=== PATIENT | female | born 1955 | race Caucasian/White ===

== ENCOUNTER → 2016-02-10 | Outpatient (CLI) | payer OTHER | LOC: MMPC 10:00 | PROVIDERS: ATTEND Physician Assistant | DX: M47.812 Spondylosis without myelopathy or radiculopathy, cervical region (principal); R51 Headache | CPT/HCPCS: 99213; G0463 ==

== ENCOUNTER → 2016-02-17 | Outpatient (CLI) | payer OTHER ==
[2016-02-19 13:50] LABS: ALDOSTERONE 5.8 ng/dL (<=21)
[2016-02-19 17:09] LABS: TESTOSTERONE TOTAL 7.9 ng/dL (8-60)
== END ==
LOC: LAB 07:28
PROVIDERS: ATTEND Student in an Organized Health Care Education/Training Program
DX: C74.92 Malignant neoplasm of unspecified part of left adrenal gland (principal); E27.49 Other adrenocortical insufficiency
CPT/HCPCS: 36415; 82088; 82157; 82627; 82670; 83498; 84244; 84403

== ENCOUNTER → 2016-02-23 | Outpatient (CLI) | payer OTHER ==
[2016-02-23 08:15] LABS: BASOPHILS # (AUTO) 0.04 10*3/UL; BASOPHILS % (AUTO) 0.6 % (0-1); EOSINOPHILS % (AUTO) 2.4 % (0-8); HEMATOCRIT 36.7 % (37.0-47.0); HEMOGLOBIN 12.9 g/dL (12.0-16.0); IMM GRAN % (AUTO) 0 % (0-5); IMM GRAN# (AUTO) 0 10*3/UL; LYMPHOCYTES # (AUTO) 2.08 10*3/uL; MEAN CORPUSCULAR HEMOGLOBIN 29.5 PG (27-31); MEAN CORPUSCULAR HGB CONC 35.1 g/dL (33-37); MEAN PLATELET VOLUME 8.7 FL (7.4-12.2); MONOCYTES # (AUTO) 0.72 10*3/UL (0.3-0.8); MONOCYTES % (AUTO) 10.7 % (5-15); NEUTROPHILS # (AUTO) 3.72 10*3/UL; NEUTROPHILS % (AUTO) 55.3 % (50-80); RDW COEFFICIENT OF VARIATION 13.6 % (11.5-14.5); RED BLOOD COUNT 4.37 10^6/uL (4.20-5.40); WHITE BLOOD COUNT 6.72 10^3/uL (4.8-10.8)
--- NOTE | 2016-02-23 08:23 | EKG ---
[address] [address] Measurements Intervals [place] Rate: 77 P: 42 OK: 155 QRS: 47 QRSD: 79 T: 40 QT: 365 QTc: 397 Interpretive Statements SINUS RHYTHM No previous ECG available for comparison Electronically Signed On 02-23-16 15:58:10 MST by Nj Crump [email or web address]
[2016-02-23 08:28] LABS: PLATELET MORPHOLOGY COMMENT NORMAL MORPHOLOGY (NORM)
[2016-02-23 08:45] LABS: CALCIUM 9.8 mg/dL (8.7-10.7); POTASSIUM 4.1 meq/L (3.8-5.2)
[2016-02-23 08:52] LABS: PROTHROMBIN TIME 10.3 secs (9.7-11.4)
== END ==
LOC: LAB 07:51
PROVIDERS: ATTEND Urology
DX: D49.7 Neoplasm of unspecified behavior of endocrine glands and other parts of nervous system (principal)
CPT/HCPCS: 36415; 80048; 85025; 85610; 85730; 93005; 93010

== ENCOUNTER 2016-05-06 14:22 | Emergency (ER) | payer OTHER ==
[2016-05-06] MEDS ORDERED: Sodium Chloride 0.9% 1,000 ML PRIMARY IV ONE (14:32)
[2016-05-06] MEDS ORDERED: KETOROLAC 30 MG/1 ML VIAL IVP ONE (14:32)
[2016-05-06] MEDS ORDERED: ONDANSETRON 4 MG/2 ML VIAL IVP ONE (14:34)
[2016-05-06 14:35] VITALS: RESP 16; TEMP 96.8
--- NOTE | 2016-05-06 14:39 | PDOC ---
Upper Respiratory HPI - General Chief Complaint: Cough / URI Stated Complaint: URI/DYSPNEA/CP Date Seen by Provider: 05/06/16 Time Seen by Provider: 14:34 Source: POSITIVE: Patient Exam Limitations: POSITIVE: No limitations Nurse's Notes Reviewed & Considered: Yes - History of Present Illness Initial Comments: Patient comes in today with a chief complaint of shortness of breath. Patient with cough, subjective fever, chills, sweats, shortness of breath, yellowish tinged sputum, and myalgias. Presently denies any rashes, she does have a headache, she has nausea but no vomiting, no diarrhea. She denies any dysuria or hematuria. Symptoms have been ongoing for approximately 7 days and getting worse. Timing: REPORTS: Getting Worse Duration: <1 week Severity: Moderate Quality: REPORTS: Other (Body aches, stuffy nose, cough, productive phlegm) Context: REPORTS: Recent Chemotherapy Modifying Factors: improves with: Rest, Coughing Associated Symptoms: REPORTS: Fever, Chills, Sweating, Runny Nose, Sinus Pain, Sore Throat, Hoarseness, Chest Pain, Cough, Productive Cough, Shortness of Breath, Hurts to Breathe, Headache Similar Symptoms Previously: No Recently seen/treated/hospitalized: No Any Prior Injuries Related to Current Complaint?: No - Patient Home Medications Home Medications: Home Medications Lisinopril 1 tab PO BID #30 tab 03/10/16 Hydrocortisone 5 mg PO TID 05/06/16 Prochlorperazine Maleate 10 mg PO PRN PRN 05/06/16 - Patient Allergies Allergies/Adverse Reactions: Allergies Allergy/AdvReac Type Severity Reaction Status Date / Time Penicillins Allergy Severe Anaphylaxis Verified 05/06/16 14:24 codeine Allergy Intermediate ITCHING Verified 05/06/16 14:24 hydrocodone Allergy Intermediate ITCHING Verified 05/06/16 14:24 Past Medical History - heen HEENT History: Denies History Cardiovascular History: Denies History Respiratory History: Denies History Gastrointestinal History: Denies History Genitourinary History: Denies History Endocrine History: Other (please comment) Additional Endocrine History: ADRENAL TUMOR/CYST? Musculoskeletal History: Back Pain, Other (please comment) Prosthesis or Implant: Yes (RT WRIST) Additional Musculoskeletal History: DJD Neurological History: Denies History Blood Disorders: Denies History Psychiatric History: Depression, Bi Polar Disorder, Anxiety Disorders History of Sexually Transmitted Diseases: No Cancer History: Denies History History of MDRO: No History of Other Communicable Diseases: No Alcohol Use: None Substance Use Type: None Previous Surgical History: Yes Type / Date of Surgery: GB AND HYSTERECTOMY. RT FOOT LIGAMENT REPAIR. RT WRIST PLATE. FATTY TUMOR OFF SHOULDER Anesthesia Reactions: Yes (AGITATION) Significant Family History: No pertinent family hx ROS - Limitations ROS Limitations: No Limitations Constitution: REPORTS: Chills, Fever, Diaphoresis, Weakness Cardiovascular: REPORTS: Chest Pain Respiratory: REPORTS: Cough Productive, Hurts To Breathe, Shortness Of Breath Neurological: REPORTS: Headache Gastrointestinal: REPORTS: Abdominal Pain, Nausea Endocrine: REPORTS: Denies Symptoms Musculoskeletal: REPORTS: Muscle Aches Genitourinary: REPORTS: Denies Symptoms Eyes: REPORTS: Denies Symptoms ENT: REPORTS: Congestion, Nasal Drainage, Sore Throat Skin: REPORTS: Denies Skin Symptoms Lympathic: REPORTS: Denies Lympathic Symptoms Immunologic: POSITIVE: Denies Symptoms Psychiatric: POSITIVE: Denies Psych Symptoms Upper Respiratory/Fever Exam - General Appearance General Appearance: REPORTS: Alert, Cooperative, No Evidence of Trauma, Mild Distress - HEENT HEENT: POSITIVE: Head Inspection Nml, Eyes Inspection Nml, Ears Inspection Nml, Nose Inspection Nml, PERRL, EOMI, Clear Nasal Drainage - Neck Neck: REPORTS: Normal Inspection, Supple - Respiratory Respiratory: REPORTS: No Respiratory Distress, Breath Sounds Normal, Speaks Full Sentences - Abdomen Abdomen: Soft: (All Quadrants), Normal Bowel Sounds: (All Quadrants), Tenderness Noted: (RUQ), (LUQ) - Cardiovascular Cardiovascular: REPORTS: Regular Rate and Rhythm, Heart Sounds Normal, Equal Pulses - Skin Skin: REPORTS: Intact, Normal For Race, Warm, Dry, No Rash - Extremities Extremity: Non-Tender: (All Extremities), Normal ROM: (All Extremities), Normal Inspection: (All Extremities) - Neurological / Psychological Neurological: POSITIVE: Affect Apporpriate, Oriented X3 Upper Resp/Fever Progress - Results Reviewed by me Xrays/CTs/US Reviewed by me: Yes Discussed with Radiologist: No Lab Results Reviewed: Yes Lab Results:: Laboratory Results 05/06/16 05/06/16 05/06/16 Range/Units 14:32 14:46 14:47 WBC 4.64 L (4.8-10.8) 10^3/uL RBC 4.71 (4.20-5.40) 10^6/uL Hgb 13.9 (12.0-16.0) g/dL Hct 39.5 (37.0-47.0) % MCV 83.9 (81-99) FL MCH 29.5 (27-31) PG MCHC 35.2 (33-37) g/dL RDW Std Deviation 43.8 (39-50) fL RDW Coeff of Maria Elena 14.5 (11.5-14.5) % Plt Count 148 (140-350) 10*3/uL MPV 9.1 (7.4-12.2) FL Immature Gran % (Auto) 0.2 (0-5) % Neut % (Auto) 62.8 (50-80) % Lymph % (Auto) 11.9 (10-50) % [place] % (Auto) 18.8 H (5-15) % Eos % (Auto) 5.0 (0-8) % Baso % (Auto) 1.3 H (0-1) % Immature Gran # (Auto) 0.01 10*3/UL Neut # (Auto) 2.92 10*3/UL Lymph # (Auto) 0.55 10*3/uL [place] # (Auto) 0.87 H (0.3-0.8) 10*3/UL Eos # (Auto) 0.23 10*3/UL Baso # (Auto) 0.06 10*3/UL WBC Morphology Comment Normal morphology (NORM) Plt Morphology Comment Normal morphology (NORM) RBC Morph Comment Normal morphology (NORM) VBG pH 7.50 H (7.32-7.42) VBG pCO2 31 L (45-55) mmHg VBG HCO3 24 (22-26) mmol/L VBG Base Excess 1 (-2-2) MMOL/L Sodium 141 (135-145) meq/L Potassium 4.0 (3.8-5.2) meq/L Chloride 105 (98-112) meq/L Carbon Dioxide 25 (23-33) meq/L Anion Gap 11 (5-20) BUN 11 (7-22) mg/dL Creatinine 0.8 (0.50-1.20) mg/dL Estimated GFR > 60 (>60 ml/min/1.73m(2)) BUN/Creatinine Ratio 13.75 (6-20) Glucose 86 (78-110) mg/dL Calculated Osmolality 289.0 (267-292) mOsm/kg Lactic Acid < 0.5 L (0.70-2.10) MMOL/L Calcium 9.4 (8.7-10.7) mg/dL Magnesium 2.2 (1.6-2.4) mg/dL Total Bilirubin 0.5 (0.3-1.2) mg/dL AST 19 (8-39) IU/L ALT 24 (9-52) IU/L Alkaline Phosphatase 132 H (38-126) IU/L C-Reactive Protein 4.1 H (0.0-0.9) mg/dL NT-Pro-B Natriuret Pep 45.0 (0-125) PG/ML Total Protein 6.9 (6.1-8.0) g/dL Albumin 4.1 (3.5-4.8) g/dL Globulin 2.8 (2.50-4.10) g/dL Albumin/Globulin Ratio 1.40 (1.3-2.0) mg/g EKG Interpretation:: POSITIVE: Normal Sinus Rhythm, Normal Rate - Patient's Progress Pain Medication Addressed: POSITIVE: Yes Re-Examine Time: 15:23 Status: POSITIVE: Improved Air Movement: Good Antibiotics Given: No (Azithromycin prescribed.) Nebulizer Treatment Given:: Yes Quality Measure Initiative: CAP: POSITIVE: SaO2, CXR or CT - Consult Counseled: POSITIVE: Patient, Family, RE: Lab Results, RE: Radiology Results, RE : DX, RE: Need for F/U RX Given: Yes (Azithromycin and medrol dose pack.) Patient Care Time - Estimated PCT Patient Care Time (In Minutes): 30 Vital Signs - Recent Vital Signs Vital Signs: Vital Signs (Last 8 hours) Temp Pulse Resp BP Pulse Ox 05/06/16 14:28 96.8 F 94 16 124/89 98 - VS Reviewed Vital Signs Reviewed: Yes Discharge Clinical Impression: Chronic obstructive pulmonary disease with acute exacerbation Discharge Disposition: Discharged to Home Condition: Stable Patient Instructions Given at Discharge: COPD (Chronic Obstructive Pulmonary Disease) (ED)
[2016-05-06 14:41] LABS: BASOPHILS # (AUTO) 0.06 10*3/UL; BASOPHILS % (AUTO) 1.3 % (0-1); EOSINOPHILS # (AUTO) 0.23 10*3/UL; HEMATOCRIT 39.5 % (37.0-47.0); HEMOGLOBIN 13.9 g/dL (12.0-16.0); LYMPHOCYTES # (AUTO) 0.55 10*3/uL; MEAN CORPUSCULAR HEMOGLOBIN 29.5 PG (27-31); MEAN CORPUSCULAR HGB CONC 35.2 g/dL (33-37); MEAN CORPUSCULAR VOLUME 83.9 FL (81-99); MEAN PLATELET VOLUME 9.1 FL (7.4-12.2); MONOCYTES # (AUTO) 0.87 10*3/UL (0.3-0.8); MONOCYTES % (AUTO) 18.8 % (5-15); NEUTROPHILS # (AUTO) 2.92 10*3/UL; NEUTROPHILS % (AUTO) 62.8 % (50-80); RED BLOOD COUNT 4.71 10^6/uL (4.20-5.40)
[2016-05-06 14:46] LABS: PLATELET MORPHOLOGY COMMENT NORMAL MORPHOLOGY (NORM); RBC MORPHOLOGY COMMENT NORMAL MORPHOLOGY (NORM); WBC MORPHOLOGY COMMENT NORMAL MORPHOLOGY (NORM)
[2016-05-06] MEDS ORDERED: IPRATROPIUM/ALBUTEROL SULFATE 3 ML NEB NEB ONE ×3 (14:51→15:00)
[2016-05-06 15:04] LABS: VENOUS PH 7.5 (7.32-7.42)
--- NOTE | 2016-05-06 15:04 | EKG ---
[address] [address] Measurements Intervals [place] Rate: 80 P: 61 PA: 151 QRS: 68 QRSD: 70 T: 61 QT: 356 QTc: 393 Interpretive Statements SINUS RHYTHM NONSPECIFIC T WAVE CHANGES Compared to ECG 02/23/2016 08:18:38 No significant changes Electronically Signed On 05-07-16 16:04:08 MDT by Nj Crump [email or web address]
[2016-05-06 15:05] LABS: BLOOD UREA NITROGEN 11 mg/dL (7-22); BUN/CREATININE RATIO 13.75 (6-20); C-REACTIVE PROTEIN 4.1 mg/dL (0.0-0.9); CALCIUM 9.4 mg/dL (8.7-10.7); EST GLOMERULAR FILTRATION > 60 (>60 ml/min/1.73m(2)); MAGNESIUM 2.2 mg/dL (1.6-2.4); SERUM ALBUMIN 4.1 g/dL (3.5-4.8)
[2016-05-06] MEDS ORDERED: DEXAMETHASONE PF 10 MG/1 ML VIAL IV ONE (15:24)
--- NOTE | 2016-05-06 15:27 | DI ---
PA /LATERAL CHEST X-RAY, 05/06/2016 2:32 PM : Clinical History: Cough and shortness of breath Previous Exam: January 25, 2016 There is no acute soft tissue or bony abnormality. There is mild stable cardiomegaly. Lungs are clear. Mediastinal structures are normal. There are no p ulmonary nodules. IMPRESSION: No acute disease.
== END 2016-05-06 15:44 | disposition home or self-care (01) ==
LOC: ER 14:22
DX: J44.1 Chronic obstructive pulmonary disease with (acute) exacerbation (principal); R50.9 Fever, unspecified; R11.0 Nausea; R51 Headache
CPT/HCPCS: 36415 ×2; 71020; 80053; 82803; 83605; 83735; 83880; 85025; 86140; 87802; 87804; 93005; 93010; 94640; 96374; 96375; 99284 ×2; J1885; J7620; J1100; J2405; J7030

== ENCOUNTER 2016-07-31 16:21 | Emergency (ER) | payer OTHER ==
[2016-07-31 16:39] VITALS: RESP 16; TEMP 97.8
[2016-07-31 17:53] LABS: BILIRUBIN,URINE NEGATIVE (NEG); CLARITY,URINE CLEAR (CLEAR); COLOR,URINE YELLOW; GLUCOSE, URINE (UA) NEGATIVE (NEG); NITRATE,URINE NEGATIVE (NEG); OCCULT BLOOD,URINE NEGATIVE (NEG); PH,URINE 5.5 (5.0-8.5); PROTEIN,URINE NEGATIVE (NEG); UROBILINOGEN,URINE 0.2 mg/dL (0.2)
[2016-07-31 17:59] LABS: BACTERIA,URINE RARE; RBC,URINE 0-1 /hpf; SQUAMOUS EPITHELIAL CELL,UR RARE; URINE SAMPLE TYPE CLEAN CATCH URINE; WBC,URINE 0-1
[2016-07-31] MEDS ORDERED: KETOROLAC 60 MG/2 ML VIAL IM ONE (18:16)
[2016-07-31] MEDS ORDERED: KETOROLAC 10 MG TABLET PO SCH (18:30)
--- NOTE | 2016-07-31 18:43 | DI ---
CLINICAL HISTORY: Right sided lumbar pain PREVIOUS EXAM: None available. FINDINGS/TECHNIQUE: AP and lateral views of the lumbar spine are obtained, and demonstrate anatomic a lignment without fractures. There is diffuse osteopenia. Degenerative endplate changes are noted. The re is some facet arthropathy. Patient is status post cholecystectomy. A nonobstructive bowel gas ines emiliana is seen. Postsurgical changes are seen within the left upper abdomen. IMPRESSION: 1. Mild degenerative changes of lumbar spine and mild diffuse osteopenia otherwise unremarkable.
--- NOTE | 2016-08-01 01:39 | PDOC ---
Back Pain / Injury HPI - General Chief Complaint: Neck / Back Complaint Stated Complaint: BACK PAIN Date Seen by Provider: 07/31/16 Time Seen by Provider: 16:30 Source: Patient Exam Limitations: POSITIVE: No limitations Nurse's Notes Reviewed & Considered: Yes - History of Present Illness Initial Comments: The patient is a 60-year-old female. She presents to the emergency room complaining of a two-week history of exacerbation of her chronic back pain. She complains of right paralumbar back pain with some radiation to the proximal aspect of her right leg. Patient states she has an appointment with her primary physician on 11 August for evaluation of this problem. Patient has a history, very long-standing, of low back pain due to "deteriorating disks "and states she's been on disability for this problem for the past 12 years. Patient has had a cholecystectomy. No dysuria, hematuria, or focal motor deficits. No urinary or fecal incontinence. No history of recent trauma. Body Location Affected: REPORTS: Back Timing: REPORTS: Constant (Chronic back pain for 12 years; worse over the past 2 weeks) Duration: >1 week Severity: Moderate Quality: REPORTS: "Pain" Context: REPORTS: None Modifying Factors: improves with: Movement Associated Symptoms: REPORTS: Back pain (Left paralumbar back pain) Similar Symptoms Previously: Yes Recent Care Received: REPORTS: Denies Any Prior Injuries Related to Current Complaint?: No - Patient Home Medications Home Medications: Home Medications Lisinopril 1 tab PO BID #30 tab 03/10/16 Hydrocortisone 5 mg PO TID 05/06/16 Prochlorperazine Maleate 10 mg PO PRN PRN 05/06/16 Ketorolac Tromethamine [Toradol] 10 mg PO Q6H PRN #20 tablet 07/31/16 - Patient Allergies Allergies/Adverse Reactions: Allergies Allergy/AdvReac Type Severity Reaction Status Date / Time Penicillins Allergy Severe Anaphylaxis Verified 05/06/16 14:24 codeine Allergy Intermediate ITCHING Verified 05/06/16 14:24 hydrocodone Allergy Intermediate ITCHING Verified 05/06/16 14:24 Past Medical History - heen HEENT History: Denies History Cardiovascular History: Hypertension Respiratory History: Denies History Gastrointestinal History: Denies History Genitourinary History: Denies History Endocrine History: Other (please comment) Additional Endocrine History: ADRENAL TUMOR/CYST? Musculoskeletal History: Back Pain, Other (please comment) Prosthesis or Implant: Yes (RT WRIST) Additional Musculoskeletal History: DJD Neurological History: Denies History Blood Disorders: Denies History Psychiatric History: Depression, Bi Polar Disorder, Anxiety Disorders History of Sexually Transmitted Diseases: No Female Reproductive History: Hysterectomy Cancer History: Denies History In Past Year Been Physically Harmed or Verbally Threatened: No History of MDRO: No History of Other Communicable Diseases: No Tobacco Use: Current Every Day Smoker Alcohol Use: None Substance Use Type: None Previous Surgical History: Yes Type / Date of Surgery: GB AND HYSTERECTOMY. RT FOOT LIGAMENT REPAIR. RT WRIST PLATE. FATTY TUMOR OFF SHOULDER Anesthesia Reactions: Yes (AGITATION) Significant Family History: No pertinent family hx Past Medical History Reviewed: Reviewed - No Changes ROS - Limitations ROS Limitations: No Limitations Constitution: REPORTS: Denies Symptoms Cardiovascular: REPORTS: Denies Cardiac Symptoms Respiratory: REPORTS: Denies Resp Symptoms Neurological: REPORTS: Denies Neuro Symptoms Gastrointestinal: REPORTS: Denies GI Symptoms Endocrine: REPORTS: Denies Symptoms Musculoskeletal: REPORTS: Back Pain. DENIES: Recent Injury Genitourinary: REPORTS: Denies Symptoms Eyes: REPORTS: Denies Symptoms ENT: REPORTS: Denies Symptoms Skin: REPORTS: Denies Skin Symptoms Lympathic: REPORTS: Denies Lympathic Symptoms Immunologic: POSITIVE: Denies Symptoms Psychiatric: POSITIVE: Denies Psych Symptoms Back Physical Assessment - General Appearance General Appearance: REPORTS: Alert, Cooperative, No Acute Distress, No Evidence of Trauma - HEENT HEENT: POSITIVE: Head Inspection Nml, Eyes Inspection Nml, Ears Inspection Nml, Nose Inspection Nml, Oral/Dental Inspect. Nml, Pharynx Inspect. Nml, PERRL, EOMI - Pupil Size Pupil Size: 3 mm: Bilateral (PERRLA) - Neck Neck: POSITIVE: Non Tender, Painless ROM, Trachea Midline, Nexus Criteria Negative - Respiratory / CVS Respiratory / CVS: POSITIVE: Chest Non Tender, No Ecchymosis, Breath Sounds Normal, No Respiratory Distress, Heart Sounds Normal, Regular Rate/Rhythm - Abdomen Abdomen: Soft: (All Quadrants), Normal Bowel Sounds: (All Quadrants), Denies Tenderness: (All Quadrants), No Splenomegaly: (All Quadrants), No Hepatomegaly: (All Quadrants), No Guarding: (All Quadrants), No Rebound: (All Quadrants), No Palpable Pulse: (All Quadrants), No Palpabale Mass: (All Quadrants), No Distention: (All Quadrants), No Rigidity: (All Quadrants) - Back Back: REPORTS: No CVA Tenderness, No Vertebral Tenderness, See Diagram. DENIES : Non Tender (Discomfort on palpation right lower lumbar musculature), Painless ROM (Range of motion intact but full flexion uncomfortable/painful), Vertebral Pt. Tenderness, CVA Tenderness (R), CVA Tenderness (L), Muscle Spasm, Limited ROM - Skin Skin: REPORTS: Intact, Normal For Race, Warm, Dry, No Rash - Extremities Extremity Assessment: Non-Tender: (ALL), Normal ROM: (ALL), No Edema: (ALL), Normal Inspection: (ALL), No Swelling: (ALL) Musculoskeletal: REPORTS: Back Pain Peripheral Pulses: Radial (R): 2+, Radial (L): 2+, Dorsalis-pedis (R): 2+, Dorsalis-pedis (L): 2+ - Neurological / Psychological Neuro / Psych: POSITIVE: Oriented X3, pulp mixer Normal As Tested, Motor Normal, Sensation Normal, Mood Appropriate, Affect Appropriate, Reflexes Normal Images - Complete Complete: 1 - Area of described discomfort Back Progress - Results Reviewed by me Xrays/CTs/US Reviewed: Yes Discussed with Radiologist: Yes Radiology Findings: X-ray lumbosacral spine shows cholecystectomy clips incidentally. No compression fractures; some degenerative changes. Lab Results Reviewed: Yes (urinalysis normal) Lab Results:: Laboratory Results 07/31/16 Range/Units 16:51 Ur Collection Type Clean catch urine Urine Color Yellow Urine Clarity Clear (CLEAR) Urine pH 5.5 (5.0-8.5) Ur Specific [place] <=1.005 (1.005-1.030) Urine Protein Negative (NEG) mg/dl Urine Glucose (UA) Negative (NEG) mg/dL Urine Ketones Negative (NEG) Urine Occult Blood Negative (NEG) Urine Nitrate Negative (NEG) Urine Bilirubin Negative (NEG) Urine Urobilinogen 0.2 (0.2) mg/dL Ur Leukocyte Esterase Negative (NEG) Urine RBC 0-1 (NONE) /hpf Urine WBC 0-1 (NONE) Ur Squamous Epith Cells Rare (NONE) Ur Renal Epithelial Cell None (NONE) Urine Crystals None Urine Bacteria Rare (NONE) Urine Casts None Urine Mucus None (NONE) Urine Trichomonas None (NONE) Urine Yeast None (NONE) - Patient's Progress Pain Medication Addressed: POSITIVE: Yes (Ketorolac, 60 mg IM given in ER and prescription for 10 mg by mouth every 6 hours as necessary.) School/Work Release Addressed: POSITIVE: Not Applicable Re-Examine Time: 18:15 Status: POSITIVE: Unchanged, Re-Examined - Consult Consult (If Yes, Name of Consulting MD & Time Called): Yes Counseled: POSITIVE: Patient, RE: Lab Results, RE: Radiology Results, RE: DX, RE : Need for F/U Patient Care Time - Estimated PCT Patient Care Time (In Minutes): 30 Vital Signs - VS Reviewed Vital Signs Reviewed: Yes Discharge Clinical Impression: Chronic back pain Discharge Disposition: Discharged to Home Condition: Stable Prescriptions / Orders: Ketorolac Tromethamine [Toradol] 10 mg PO Q6H PRN #20 tablet PRN Reason: Pain Patient Instructions Given at Discharge: Chronic Back Pain (ED) Additional Instructions: Follow-up with your primary care provider on 11 August as is already arranged. Toradol, one every 6 hours as necessary for pain. Warm moist compresses to back. Follow-up with your primary care provider. Return here as necessary. Follow Up With: SHILOH SETHI [Primary Care Provider] - (Instructions as above. Follow-up with your primary care provider as is arranged. Return here as necessary.)
== END 2016-07-31 18:53 | disposition home or self-care (01) ==
LOC: ER 16:21 → SUPCPDRO 16:21 → ER 18:53
DX: M54.5 Low back pain (principal); I10 Essential (primary) hypertension
CPT/HCPCS: 72100; 81001; 96372; 99283 ×2; J1885